=== PATIENT | female | born 1970 | race Caucasian/White ===

== ENCOUNTER 2019-04-20 12:51 | Emergency (ER) | payer OTHER ==
[~2019-04-20] VITALS: Ht 152.4 cm; Wt 106.1 kg
[~2019-04-20 12:51] MED LIST: ADVAIR 250-501 EACH; ALL DAY ALLERGY10 M3 PO; AMBIEN 5 MG TABL5 M1 PO; BACTRIM DS TAB1 EACH PO; CARAFATE1 GM/10 ML PO; CARVEDILOL12.5 MG PO; CENTANY AT1 EACH PO; CHLORTHALIDONE25 MG PO; CIPRO500 MG PO; CONCERTA27 MG; COZAAR 25MG TAB25 M1; COZAAR 50 MG TA50 M1; DOXYCYCLINE 10100 M1 PO; FLEXERIL PO; FLONASE 0.05%50 MCG NASAL; HYDROCHLOROTHIA25 M2; HYDROXYZINE HCL25 M1; IBUPROFEN 800800 M1 PO; LASIX 40 MG TAB40 M2; LEVOTHYROXIN0.025 MG; LISINOPRIL-HCT1 EACH; MAALOX525 MG/15; MELATONIN1 MG PO; MUCINEX D TABL1 EAC1; PHENERGAN12.5 M2 RECTAL; PREDNISONE 20 M20 M1 PO; PROAIR HFA8.5 GM; PROTONIX40 M1; PROTONIX40 M1 PO; PROTONIX40 M2 PO; PROZAC40 MG PO; SYNTHROID50 MCG PO; TESSALON200 MG PO; TOPAMAX 25 MG T25 M1; TRAMADOL 50 MG50 MG PO; TRAZODONE HCL50 MG PO; VITAMIN D1000 UNI1 PO; ZYPREXA 10 MG T10 MG PO; [UNRECOGNIZED DRUG - REMARK]
[2019-04-20] MEDS ORDERED: LATUDA60 MG PO (13:02)
[2019-04-20] MEDS ORDERED: FLOVENT HFA 4444 MCG INH (13:03)
[2019-04-20] MEDS ORDERED: AMITIZA8 MCG PO (13:03)
[2019-04-20] MEDS ORDERED: TOPAMAX100 MG PO (13:04)
[2019-04-20] MEDS ORDERED: LOSARTAN POTASS50 MG PO (13:04)
[2019-04-20] MEDS ORDERED: KLOR-CON M2020 MEQ PO (13:04)
[2019-04-20] MEDS ORDERED: ATIVAN0.5 M1 PO (13:54)
[2019-04-20] MEDS ORDERED: BACTRIM DS TAB1 EAC1 PO (13:54)
[2019-04-20 14:01] VITALS: BP 135/80
== END 2019-04-20 14:01 | disposition home or self-care (01) ==
LOC: M.ERS 12:51
DX: F41.9 Anxiety disorder, unspecified (principal); J32.9 Chronic sinusitis, unspecified; I10 Essential (primary) hypertension; F32.9 Major depressive disorder, single episode, unspecified; Z88.0 Allergy status to penicillin; Z88.6 Allergy status to analgesic agent

== ENCOUNTER 2019-08-15 17:45 | Emergency (ER) | payer OTHER ==
[~2019-08-15] VITALS: Ht 162.6 cm; Wt 90.7 kg
[~2019-08-15 17:45] MED LIST changes: +AMITIZA8 MCG PO; +ATIVAN0.5 M1 PO; +BACTRIM DS TAB1 EAC1 PO; +FLOVENT HFA 4444 MCG INH; +KLOR-CON M2020 MEQ PO; +LATUDA60 MG PO; +LOSARTAN POTASS50 MG PO; +TOPAMAX100 MG PO
[2019-08-15] MEDS ORDERED: FLEXERIL PO (19:12)
[2019-08-15] MEDS ORDERED: MOBIC15 MG PO (19:13)
[2019-08-15 19:30] VITALS: BP 158/79
== END 2019-08-15 19:30 | disposition home or self-care (01) ==
LOC: M.ERS 17:45
DX: S16.1XXA Strain of muscle, fascia and tendon at neck level, initial encounter (principal); I10 Essential (primary) hypertension; F32.9 Major depressive disorder, single episode, unspecified; Z90.710 Acquired absence of both cervix and uterus; Z90.89 Acquired absence of other organs; Z79.899 Other long term (current) drug therapy; Z88.5 Allergy status to narcotic agent; Z88.0 Allergy status to penicillin; V47.6XXA Car passenger injured in collision with fixed or stationary object in traffic accident, initial encounter; Y93.89 Activity, other specified; Y92.488 Other paved roadways as the place of occurrence of the external cause; Y99.8 Other external cause status

== ENCOUNTER 2019-09-28 20:46 | Emergency (ER) | payer OTHER ==
[~2019-09-28] VITALS: Ht 152.4 cm; Wt 108.0 kg
[~2019-09-28 20:46] MED LIST changes: +MOBIC15 MG PO
[2019-09-28] MEDS ORDERED: MAPAP500 M1 PO (20:55)
[2019-09-28] MEDS ORDERED: ADDERALL 10 MG10 MG PO (20:55)
[2019-09-28] MEDS ORDERED: ZANAFLEX4 M1 PO (20:55)
[2019-09-29 02:13] LABS: ABSOLUTE EOSINOPHILS 0.1 thou/uL (0.0-0.7); ABSOLUTE LYMPHOCYTES 2.8 thou/uL (0.8-5.3); ABSOLUTE MONOCYTES 0.7 thou/uL (0.0-1.2); ABSOLUTE NEUTROPHILS 3.2 thou/uL (1.6-8.1); BASOPHILS 0.6 %; EOSINOPHILS 1.6 %; HEMATOCRIT 33.6 % (37.0-47.0); HEMOGLOBIN 11.5 gm/dL (12.0-15.0); LYMPHOCYTES 41.6 %; MCH 30.6 pg (26.0-34.0); MCHC 34.2 g/dL (28.0-37.0); MCV 89.5 fL (80.0-100.0); MONOCYTES 9.7 %; MPV 7.3 fl. (7.2-11.1); NUCLEATED RBCS 0 /100WBC; PLATELET COUNT* 345 thou/uL (150-400); POLYS 46.5 %; RBC 3.75 mil/uL (4.20-5.00); RDW-CV 13.7 % (10.5-14.5); WBC 6.8 thou/uL (4.0-11.0)
[2019-09-29 02:22] LABS: CALCIUM 9.2 mg/dL (8.5-10.1); CREATININE 1.6 mg/dL (0.6-1.3)
[2019-09-29 02:26] LABS: POTASSIUM 2.8 mmol/L (3.5-5.1)
[2019-09-29 02:32] LABS: URINE BILIRUBIN NEGATIVE (Negative); URINE BLOOD TRACE (Negative); URINE CLARITY CLEAR; URINE COLOR STRAW; URINE GLUCOSE-RANDOM NEGATIVE (Negative); URINE KETONES NEGATIVE (Negative); URINE LEUKOCYTES NEGATIVE (Negative); URINE NITRITE NEGATIVE (Negative); URINE PROTEIN NEGATIVE (Negative); URINE UROBILINOGEN 0.2 E.U./dl (0.2-1.0)
[2019-09-29 02:45] LABS: AMP/METHAMP Negative (Negative); BARBITURATES Negative (Negative); BENZODIAZEPINES Negative (Negative); COCAINE Negative (Negative); METHADONE Negative (Negative); OPIATES Negative (Negative); PCP Negative (Negative); THC POSITIVE (Negative)
[2019-09-29] MEDS ORDERED: TRAMADOL 50 MG50 MG PO (05:00)
[2019-09-29] MEDS ORDERED: POTASSIUM20 PO (05:05)
[2019-09-29 05:15] VITALS: BP 138/67
== END 2019-09-29 05:15 | disposition home or self-care (01) ==
LOC: M.ERS 20:46
PROVIDERS: Emergency Medicine
DX: M62.830 Muscle spasm of back (principal); M54.2 Cervicalgia; R07.81 Pleurodynia; I10 Essential (primary) hypertension; J45.909 Unspecified asthma, uncomplicated; F32.9 Major depressive disorder, single episode, unspecified; Z90.49 Acquired absence of other specified parts of digestive tract; Z90.710 Acquired absence of both cervix and uterus; Z88.0 Allergy status to penicillin; Z88.6 Allergy status to analgesic agent; V49.88XA Car occupant (driver) (passenger) injured in other specified transport accidents, initial encounter; Y93.89 Activity, other specified; Y92.89 Other specified places as the place of occurrence of the external cause; Y99.8 Other external cause status